=== PATIENT | female | born 1995 | race Caucasian/White ===

== ENCOUNTER 2020-09-16 15:47 | Emergency (ER) | payer OTHER ==
[~2020-09-16] VITALS: Ht 162.6 cm; Wt 65.9 kg
[2020-09-16 16:29] VITALS: BP 99/69
[2020-09-16] MEDS ORDERED: ACETAMINOPHEN 500 MG TABLET PO ONE (17:00)
[2020-09-16] MEDS ORDERED: PIPERACILLIN/TAZOBACTAM 4.5 GM in IV NORMAL SALINE 50ML 50 ML IV ONE (17:00)
[2020-09-16] MEDS ORDERED: IV NORMAL SALINE 1,000ML 1,000 ML IV ONE (17:00)
[2020-09-16] MEDS ORDERED: IOHEXOL 350 MG/ML 100 ML VIAL. IV ONE (17:00)
--- NOTE | 2020-09-16 17:05 | PHYS DOC ---
Past History Past Medical History: No Pertinent History Past Surgical History: , Hysterectomy Smoking: Non-smoker Alcohol Use: None Drug Use: None General Adult EDM: Chief Complaint: POST-OP PROBLEM HPI: HPI: Patient is a 25 year old female post op an emergent for placenta accreta at on Sep 01, who presents today with abdominal/flank pain and fever. She states after her 10 day hospital stay she has been comfortable at home up until last night when she began having fever (102 at home), chills, and severe abdominal pain. She states she has also had burning with urination that has been present since the . She has been taking antibiotics (clindamycin she thought) since her departure from the hospital. She states her pain is diffuse and constant. She ran out of her percocet a few days ago so has been taking tylenol which has not been helping. She denies any n/v, additionally she still has been able to eat and drink although she has been constipated. She rates her current pain a +7/10. Review of Systems: Review of Systems: Constitutional: States she has had fever and chills for the past 24 hrs Eyes: Denies redness or eye pain HENT: Denies nasal congestion or sore throat Respiratory: Denies cough or shortness of breath Cardiovascular: Denies chest pain or palpitations GI: States her abdominal pain is diffuse and goes in to her flank region as well, denies any nausea or vomiting : States she has had dysuria but no hematuria Musculoskeletal: Denies back pain or joint pain, but does state she has flank pain. Integument: Denies rash or skin lesions Neurologic: She has had headache but no focal weakness or sensory changes Complete systems were reviewed and found to be within normal limits, except as documented in this note. Current Medications: Current Meds: Current Medications Medications (Trade) Dose Ordered Sig/Ginger Start Time Stop Time Status Last Admin Dose Admin Acetaminophen (Tylenol) 500 mg 1X ONCE 09/16/20 17:09/16/20 17:02 DC Fentanyl Citrate (Fentanyl 2ml Vial) 50 mcg 1X ONCE 09/16/20 17:00 09/16/20 17:02 DC Iohexol (Omnipaque 350 Mg/ml) 100 ml 1X ONCE 09/16/20 17:00 09/16/20 17:02 DC Piperacillin Sod/ Tazobactam Sod 4.5 gm/Sodium Chloride 50 ml @ 100 mls/hr 1X ONCE 09/16/20 17:00 09/16/20 17:29 Sodium Chloride 1,000 ml @ 1,000 mls/hr 1X ONCE 09/16/20 17:00 09/16/20 17:59 Allergies: Allergies: Allergies Coded Allergies Type Severity Reaction Last Updated Verified Sulfa (Sulfonamide Antibiotics) Allergy Unknown 09/16/20 Yes Physical Exam: PE: Constitutional: Well developed, well nourished, Clearly discomfortable and sweaty sitting in bed but no acute distress HENT: Normocephalic, atraumatic Eyes: PERRL, EOMI, conjunctiva normal, no discharge Neck: Normal range of motion, no tenderness, supple Lungs & Thorax: No respiratory distress, equal chest rise and fall Abdomen: Midline incision present from xyphoid to pubic bone. About 5 cm of wound dehiscence present at the lower part of the wound, with blood and mucous discharge. Abdomen is soft but diffusely tender to palpation, no peritoneal signs present. Skin: Warm, sweaty, flushed cheeks, no rash Back: No midline tenderness, CVA tenderness present bilaterally. Extremities: No tenderness, ROM intact, no edema, no swelling or erythema Neurologic: Alert and oriented X 3, normal motor function, normal sensory function, no focal deficits noted Psychologic: Affect normal, judgment normal Current Patient Data: Vital Signs: Vital Signs Date Time Temp Pulse Resp B/P (MAP) Pulse Ox O2 Delivery O2 Flow Rate FiO2 09/16/20 16:29 100.7 102 16 99/69 (79) 96 Room Air EKG: EKG: [] Radiology/Procedures: Radiology/Procedures: []PROCEDURE: CT ANGIO CHEST W ABD PEL W/ EXAM: CT chest with contrast - pulmonary embolus protocol CLINICAL HISTORY: post op 09/01, fever, abdominal wall swelling/erythema COMPARISON: None. TECHNIQUE: CT of the chest following the administration of intravenous contrast during the pulmonary arterial phase. Axial, coronal and sagittal reformatted images were generated including MIP images. ---PQRS compliance statement - One or more of the following individualized dose reduction techniques were utilized for this study: 1. Automated exposure control 2. Adjustment of the mA and/or kV according to patient size 3. Use of iterative reconstruction technique--- FINDINGS: CHEST: Diagnostic quality: Suboptimal. Pulmonary emboli: No pulmonary emboli to the level of the lobar branches. More peripheral vessels are not well assessed. Right heart strain: None Pulmonary arteries: Normal in caliber. Heart is not enlarged. No pericardial effusion. No pleural effusion or pne umothorax. No axillary lymphadenopathy. No mediastinal or hilar lymphadenopathy. No suspicious lung nodule or mass is seen. No lobar consolidation. Visualized Upper abdomen: Please see CT abdomen and pelvis report below for full details. Bones: No aggressive osseous lesion is seen. IMPRESSION: No evidence for acute pulmonary embolus. EXAM: CT Abdomen and Pelvis with IV contrast CLINICAL HISTORY: post op 09/01, fever, abdominal wall swelling/er ythema COMPARISON: none TECHNIQUE: Helical CT of the abdomen and pelvis was performed following the administration of intravenous contrast. Axial, coronal and sagittal reformatted images were generated. PQRS compliance statement - One or more of the following individualized dose reduction techniques were utilized for this study: 1. Automated exposure control 2. Adjustment of the mA and/or kV according to patient size 3. Use of iterative reconstruction technique FINDINGS: Lower chest: Lung bases are clear. Abdomen and Pelvis: A few subcentimeter hypodense hypodense right hepatic lobe lesions too small to accurately characterize but likely cystic. The liver is enlarged measuring approximately 26 cm in length. Gallbladder is normal. No biliary duct d ilatation. Pancreas is unremarkable. Spleen is normal in appearance. Adrenal glands are unremarkable. Heterogeneous nephrograms bilaterally. Nonobstructing left upper pole renal calculus. Nonobstructing right lower pole renal calculus. No hydronephrosis. No hydroureter. No ureteral or bladder calculi. Bladder wall thickening may be seen with cystitis or reactive. Ventral abdominal incision is seen with small collection measuring approximately 2 x 1.5 x 3 cm. Small collection is seen within the pelvis with peripheral/peritoneal enhancement. No bowel obstruction. Moderate colonic stool content is seen. No small or large bowel dilatation. Fat-containing inguinal hernias bilaterally. Heterogeneous enhancement of the venous structures limits evaluation. Aorta is normal in caliber. Bones: No aggressive osseous lesion is seen. IMPRESSION: 1. Ventral abdominal incision is seen with small associated collection likely seroma. 2. Small volume pelvic fluid with likely peritoneal enhancement/peritonitis, possibly reactive given recent surgery. 3. Heterogeneous nephrograms bilaterally may be seen with pyelonephritis and can be correlated with urinalysis. 4. Nonobstructing renal calculi bilaterally. 5. Hepatomegaly. Electronically signed by: Robert Hernández MD (09/16/2020 5:38 PM) [facility] Course & Med Decision Making: Course & Med Decision Making Pertinent Labs and Imaging studies reviewed. (See chart for details) Haily Brar is a 25 year old female post op an emergent for placenta accreta at on Sep 01, who presents today with abdominal/flank pain and fever. Due to her vitals (tachycardia and fever) + possible source of infection (c section wound/urinalysis), she was initiated on sepsis protocol including fluids and broad spectrum antibiotics. Her pulmonary CT did not show any sign of a PE or infection. Her abdominal CT showed a possible pylonephritis which can be correlated clinically with her urinalysis. Although her abdominal wound is superficially dehised, there is no surrounding erythema and only a small amount of discharge, therefor her infection is most likely due to her pylonephritis and not this wound. Farrah Disclaimer: Farrah Disclaimer: This electronic medical record was generated, in whole or in part, using a voice recognition dictation system. Departure Departure: Impression: Primary Impression: Pyelonephritis Additional Impression: Wound dehiscence Disposition: 01 DC HOME SELF CARE/HOMELESS Condition: STABLE Referrals: PCP,UNKNOWN (PCP) Patient Instructions: Fever, Adult, [id number], Pyelonephritis, Adult, [id number], Wound Dehiscence, [id number] Additional Instructions: Please follow closely with your [facility] at for further evaluation of your C- section wound. Scripts Oxycodone HCl/Acetaminophen (Percocet 5-325 mg Tablet) 1 Each Tablet 0.5-1 TAB PO Q4-6HRS PRN for PAIN MDD 2 Tablet(s), #10 TAB 0 Refills Prov: YANY SANCHEZ DO 09/16/20 Phenazopyridine Hcl (PYRIDIUM) 200 Mg Tablet 200 MG PO Q8HRS for urinary tract infection, #6 TAB Prov: YANY SANCHEZ DO 09/16/20 Cephalexin (CEPHALEXIN) 500 Mg Tablet 1 TAB PO TID for Pyelonephrosis for 7 Days, #21 TAB Prov: YANY SANCHEZ DO 09/16/20 YANY SANCHEZ DO Sep 16, 2020 17:05
[2020-09-16] MEDS ORDERED: IV NORMAL SALINE 50ML 50 ML ONE ×2 (17:07→20:24)
[2020-09-16] MEDS ORDERED: PIPERACILLIN/TAZOBACTAM 4.5 GM VIAL IV ONE (17:08)
[2020-09-16 17:22] LABS: BASO # 0.1 x10^3/uL (0.0-0.2); BASO % 1 % (0-3); EOS # 0.1 x10^3/uL (0.0-0.7); EOS % 1 % (0-3); HEMATOCRIT 33.7 % (36.0-47.0); HEMOGLOBIN 11.2 g/dL (12.0-15.5); LYMPH % 10 % (24-48); MEAN CORPUSCULAR HEMOGLOBIN 30 pg (25-35); MEAN CORPUSCULAR HGB CONC 33 g/dL (31-37); MEAN CORPUSCULAR VOLUME 91 fL (79-100); MONO # 0.8 x10^3/uL (0.0-1.1); MONO % 8 % (0-9); NEUT # 7.7 x10^3uL (1.8-7.7); NEUT % 80 % (31-73); PLATELET COUNT 299 x10^3/uL (140-400); RED CELL DISTRIBUTION WIDTH 15.6 % (11.5-14.5); WHITE BLOOD COUNT 9.6 x10^3/uL (4.0-11.0)
[2020-09-16 17:33] LABS: ANION GAP 15 (6-14); BLOOD UREA NITROGEN 9 mg/dL (7-20); BUN/CREATININE RATIO 10 (6-20); CALCIUM 8.2 mg/dL (8.5-10.1); CARBON DIOXIDE 21 mmol/L (21-32); CHLORIDE 106 mmol/L (98-107); CREATININE 0.9 mg/dL (0.6-1.0); GFR 76.3; GLUCOSE 86 mg/dL (70-99); POTASSIUM 3.9 mmol/L (3.5-5.1); SODIUM 142 mmol/L (136-145)
--- NOTE | 2020-09-16 17:40 | RAD ---
EXAM: CT chest with contrast - pulmonary embolus protocol CLINICAL HISTORY: post op 09/01, fever, abdominal wall swelling/erythema COMPARISON: None. TECHNIQUE: CT of the chest following the administration of intravenous contrast during the pulmonary arterial phase. Axial, coronal and sagittal reformatted images were generated including MIP images. ---PQRS compliance statement - One or more of the following individualized dose reduction techniques were utilized for this study: 1. Automated exposure control 2. Adjustment of the mA and/or kV according to patient size 3. Use of iterative reconstruction technique--- FINDINGS: CHEST: Diagnostic quality: Suboptimal. Pulmonary emboli: No pulmonary emboli to the level of the lobar branches. More peripheral vessels ar e not well assessed. Right heart strain: None Pulmonary arteries: Normal in caliber. Heart is not enlarged. No pericardial effusion. No pleural effusion or pneumothorax. No axillary lymp hadenopathy. No mediastinal or hilar lymphadenopathy. No suspicious lung nodule or mass is seen. No lobar consolidation. Visualized Upper abdomen: Please see CT abdomen and pelvis report below for full details. Bones: No aggressive osseous lesion is seen. IMPRESSION: No evidence for acute pulmonary embolus. EXAM: CT Abdomen and Pelvis with IV contrast CLINICAL HISTORY: post op 09/01, fever, abdominal wall swelling/erythema COMPARISON: none TECHNIQUE: Helical CT of the abdomen and pelvis was performed following the administration of intrave nous contrast. Axial, coronal and sagittal reformatted images were generated. PQRS compliance statement - One or more of the following individualized dose reduction techniques wer e utilized for this study: 1. Automated exposure control 2. Adjustment of the mA and/or kV according to patient size 3. Use of iterative reconstruction technique FINDINGS: Lower chest: Lung bases are clear. Abdomen and Pelvis: A few subcentimeter hypodense hypodense right hepatic lobe lesions too small to accurately characteri ze but likely cystic. The liver is enlarged measuring approximately 26 cm in length. Gallbladder is n ormal. No biliary duct dilatation. Pancreas is unremarkable. Spleen is normal in appearance. Adrenal glands are unremarkable. Heterogeneous nephrograms bilaterally. Nonobstructing left upper pole renal calculus. Nonobstructing right lower pole renal calculus. No hydronephrosis. No hydroureter. No ureteral or bladder calculi. B ladder wall thickening may be seen with cystitis or reactive. Ventral abdominal incision is seen with small collection measuring approximately 2 x 1.5 x 3 cm. Smal l collection is seen within the pelvis with peripheral/peritoneal enhancement. No bowel obstruction. Moderate colonic stool content is seen. No small or large bowel dilatation. Fat-containing inguinal hernias bilaterally. Heterogeneous enhancement of the venous structures limit s evaluation. Aorta is normal in caliber. Bones: No aggressive osseous lesion is seen. IMPRESSION: 1. Ventral abdominal incision is seen with small associated collection likely seroma. 2. Small volume pelvic fluid with likely peritoneal enhancement/peritonitis, possibly reactive given recent surgery. 3. Heterogeneous nephrograms bilaterally may be seen with pyelonephritis and can be correlated with urinalysis. 4. Nonobstructing renal calculi bilaterally. 5. Hepatomegaly. Electronically signed by: Robert Hernández MD (09/16/2020 5:38 PM) [facility]
[2020-09-16 17:50] LABS: ALBUMIN 3.1 g/dL (3.4-5.0); ALBUMIN/GLOBULIN RATIO 0.8 (1.0-1.7); ALK PHOS 114 U/L (46-116); ALT (SGPT) 35 U/L (14-59); AST (SGOT) 20 U/L (15-37); LIPASE 201 U/L (73-393); TOTAL BILIRUBIN 0.1 mg/dL (0.2-1.0); TOTAL PROTEIN 7.1 g/dL (6.4-8.2)
[2020-09-16] MEDS ORDERED: MORPHINE SULFATE 4 MG/ML DISP.SYRIN. IV ONE (18:00)
[2020-09-16] MEDS ORDERED: oxyCODONE/APAP 5/325 1 TAB TABLET PO ONE (19:15)
[2020-09-16 19:28] LABS: BACTERIA,URINE FEW /HPF (0-FEW); BILIRUBIN,URINE NEG (NEG); CLARITY,URINE CLEAR; COLOR,URINE STRAW; GLUCOSE,URINE NEG (NEG); NITRITE,URINE POS (NEG); SQUAMOUS EPITHELIAL CELL,UR OCC /LPF; UROBILINOGEN,URINE 0.2 mg/dL (0.2 mg/dL)
[2020-09-16 19:39] LABS: BARBITURATES NEG (NEG); BENZODIAZEPINES NEG (NEG); CANNABINOIDS NEG (NEG); COCAINE NEG (NEG); METHADONE NEG (NEG); OPIATES NEG (NEG); PHENCYCLIDINE NEG (NEG)
[2020-09-16] MEDS ORDERED: PHENAZOPYRIDINE 200 MG TABLET. PO ONE (20:00)
[2020-09-16 20:03] LABS: AMPHETAMINE/METHAMPHETAMINE NEG (NEG)
[2020-09-16] MEDS ORDERED: OXYC-325 PO (20:05)
[2020-09-16] MEDS ORDERED: CEPH500T PO (20:05)
[2020-09-16] MEDS ORDERED: PHEN-318 PO (20:05)
[2020-09-16] MEDS ORDERED: cefTRIAXone SODIUM 1 GM VIAL ONE (20:24)
== END 2020-09-16 21:10 | disposition home or self-care (01) ==
LOC: ER 15:47
DX: O86.21 Infection of kidney following delivery (principal); O90.0 Disruption of cesarean delivery wound; Z98.890 Other specified postprocedural states; Z90.710 Acquired absence of both cervix and uterus; Z88.2 Allergy status to sulfonamides
CPT/HCPCS: 36415; 71275; 74177; 80053; 80307; 81001; 82553; 83605; 83690; 84484; 85025; 85610; 85730; 87040; 87086; 96365; 96367; 96375; 99285; J0696; J2270; J2543; J3010; J7030; Q9967